=== PATIENT | female | born 1995 | race Caucasian/White ===

== ENCOUNTER 2025-10-14 15:47 | Outpatient (CLI) | payer OTHER | END 2025-10-14 15:48 | disposition home or self-care (01) | LOC: BURRAD 15:47 | PROVIDERS: ATTEND Family Medicine | DX: S20.211A Contusion of right front wall of thorax, initial encounter (principal); R07.89 Other chest pain; R25.2 Cramp and spasm | CPT/HCPCS: 71046 ==